=== PATIENT | male | born 1950 ===

== ENCOUNTER → 2018-06-13 | Outpatient (CLI) | payer OTHER | END | disposition home or self-care (01) | LOC: RAD 07:36 | DX: C64.1 Malignant neoplasm of right kidney, except renal pelvis (principal) ==

== ENCOUNTER 2018-10-01 07:09 | Outpatient (CLI) | payer OTHER | END 2018-10-01 07:17 | disposition home or self-care (01) | LOC: TOM 07:09 | DX: N20.0 Calculus of kidney (principal) ==

== ENCOUNTER 2019-02-05 08:04 | Outpatient (CLI) | payer OTHER | END 2019-02-05 17:00 | disposition home or self-care (01) | LOC: RAD 08:04 | DX: M25.561 Pain in right knee (principal); M25.562 Pain in left knee ==

== ENCOUNTER 2019-07-01 09:25 | Outpatient (CLI) | payer OTHER | END 2019-07-01 17:00 | disposition home or self-care (01) | LOC: RAD 09:25 | DX: N28.89 Other specified disorders of kidney and ureter (principal) ==

== ENCOUNTER 2019-09-05 07:50 | Outpatient (CLI) | payer OTHER | END 2019-09-05 08:02 | disposition home or self-care (01) | LOC: TOM 07:50 | DX: C61 Malignant neoplasm of prostate (principal); N20.0 Calculus of kidney; N28.89 Other specified disorders of kidney and ureter ==

== ENCOUNTER 2019-12-23 08:02 | Outpatient (CLI) | payer OTHER | END 2019-12-23 08:36 | disposition home or self-care (01) | LOC: SONOGRAMA 08:02 | DX: C64.1 Malignant neoplasm of right kidney, except renal pelvis (principal); N20.0 Calculus of kidney ==

== ENCOUNTER → 2020-04-13 | Outpatient (CLI) | payer OTHER | END | disposition home or self-care (01) | LOC: RAD 09:11 | PROVIDERS: ATTEND Radiology Diagnostic Radiology | DX: M13.862 Other specified arthritis, left knee (principal); M13.861 Other specified arthritis, right knee ==

== ENCOUNTER → 2020-09-08 | Outpatient (CLI) | payer OTHER | END | disposition home or self-care (01) | LOC: TOM 07:52 | PROVIDERS: ATTEND Radiology Diagnostic Radiology | DX: N20.0 Calculus of kidney (principal); C61 Malignant neoplasm of prostate; C64.1 Malignant neoplasm of right kidney, except renal pelvis ==

== ENCOUNTER 2020-12-27 07:42 | Outpatient (CLI) | payer OTHER | END 2020-12-27 07:53 | disposition home or self-care (01) | LOC: SONOGRAMA 07:42 | PROVIDERS: ATTEND Urology | DX: N28.89 Other specified disorders of kidney and ureter (principal); C64.1 Malignant neoplasm of right kidney, except renal pelvis ==

== ENCOUNTER → 2021-10-28 | Outpatient (CLI) | payer OTHER | END | disposition home or self-care (01) | LOC: SONOGRAMA 07:46 | PROVIDERS: ATTEND Urology | DX: C64.1 Malignant neoplasm of right kidney, except renal pelvis (principal) ==

== ENCOUNTER 2022-09-05 07:01 | Outpatient (CLI) | payer OTHER | END 2022-09-05 07:30 | disposition home or self-care (01) | LOC: SONOGRAMA 07:01 | PROVIDERS: ATTEND Radiology Diagnostic Radiology | DX: C64.1 Malignant neoplasm of right kidney, except renal pelvis (principal) ==

== ENCOUNTER 2023-10-03 07:38 | Outpatient (CLI) | payer OTHER | END 2023-10-03 07:45 | disposition home or self-care (01) | LOC: SONOGRAMA 07:38 | DX: N18.4 Chronic kidney disease, stage 4 (severe) (principal); N20.0 Calculus of kidney; C61 Malignant neoplasm of prostate; C64.1 Malignant neoplasm of right kidney, except renal pelvis ==

== ENCOUNTER 2024-08-13 07:26 | Outpatient (CLI) | payer OTHER | END 2024-08-13 07:32 | disposition home or self-care (01) | LOC: SONOGRAMA 07:26 | PROVIDERS: ATTEND Surgery | DX: N03.9 Chronic nephritic syndrome with unspecified morphologic changes (principal); Z90.5 Acquired absence of kidney; I10 Essential (primary) hypertension ==